=== PATIENT | female | born 1985 | race Caucasian/White ===

== ENCOUNTER 2018-12-10 20:31 | Emergency (ER) | payer OTHER, SELFPAY ==
--- NOTE | 2018-12-10 20:43 | ED.BACK ---
HPI - Back Pain/Injury <HEENA Danielle - Last Filed: 12/10/18 21:29> General Chief Complaint: Back Pain/Injury Stated Complaint: says she threw out her back Time Seen by Provider: 12/10/18 20:43 Source: patient and family (spouse) Mode of arrival: ambulatory Limitations: no limitations History of Present Illness HPI Narrative: pt says she was bending over to pickle sorter kids toys and threw her back out, instant pain, happened yesterday, went to walk in clinic, given shot of Toradol there, no rx and can't take the pain anymore, pain is worse with movement and touch, and nothing makes it better Complaint: back pain and back injury Onset (ago): day(s) Duration: constant Similar Symptoms Previously: No Location: lumbar spine Severity: severe Quality: sharp Radiation: none Relieving factors: none Exacerbating factors: movement, sitting upright and walking Context: while lifting and bending Associated symptoms: denies other symptoms Treatments prior to arrival: acetaminophen and other (patch) Related Data Home Medications Medication Instructions Recorded Confirmed pantoprazole [Protonix] 40 mg PO QDAY #0 06/07/16 12/09/18 Previous Rx's Medication Instructions Recorded cyclobenzaprine 10 mg PO Q8H PRN #20 tab 12/10/18 tramadol [Ultram] 50 mg PO Q6H PRN #20 tab 12/10/18 Allergies Allergy/AdvReac Type Severity Reaction Status Date / Time No Known Drug Allergies Allergy Verified 12/10/18 20:45 Review of Systems <HEENA Danielle - Last Filed: 12/10/18 21:29> Review of Systems ROS Unobtainable: All systems reviewed & are unremarkable except as noted in HPI and below Constitutional Reports as per HPI, Reports system reviewed and no additional complaints, except as docu and Denies weakness ENT Ears, Nose, Mouth, and Throat: Denies neck pain Cardiovascular Denies chest pain, Denies leg edema and Denies dyspnea Respiratory Denies dyspnea Gastrointestinal Gastrointestinal: Denies abdominal pain, Denies diarrhea and Denies vomiting Genitourinary Denies hematuria, Denies urinary frequency, Denies difficulty voiding, Denies dysuria, Denies flank pain, Denies urinary incontinence, Denies urinary hesitancy and Denies urinary urgency Musculoskeletal Reports as per HPI, Reports abnormal gait, Reports back pain, Denies deformity, Reports limited range of motion, Denies muscle weakness, Denies neck pain, Denies numbness and Denies tingling Integumentary/Breasts Reports as per HPI, Reports unusual bruising (says today noticed small bruise near area of back pain and has no idea wher) and Denies wounds Comments: where bruise came from Neurologic Reports abnormal gait, Denies numbness, Denies sensory deficit, Denies tingling, Denies paresthesias and Denies weakness PFSH <HEENA Danielle - Last Filed: 12/10/18 21:29> Social History Smoking Status: Current every day smoker Social History Smoking Status: Current every day smoker Exam <HEENA Danielle - Last Filed: 12/10/18 21:29> Initial Vital Signs Initial Vital Signs: Vital Signs Temperature 97.8 F 12/10/18 20:45 Pulse Rate 114 H 12/10/18 20:45 Respiratory Rate 18 12/10/18 20:45 Blood Pressure 144/90 H 12/10/18 20:45 Pulse Oximetry 100 12/10/18 20:45 Const General: cooperative, healthy appearing, comfortable, well developed and well groomed Nutritional Appearance: average body habitus Orientation: alert, awake and oriented x3 HENMT Head: normal to inspection and normocephalic Ears: hearing grossly normal bilaterally, external ears normal, TM's normal bilaterally and mastoids normal Nose: external nose normal and nares normal Face and sinus: normal facial exam, sinuses nontender and face symmetric Mouth: oral mucosae normal, lip normal, tongue normal, oropharynx normal and moist mucous membranes Teeth and gingiva: dentition normal and gingiva normal Throat: posterior oropharynx normal, tonsils normal and uvula midline Eyes General: appearance normal, both eyes and all related structures Visual Patricio: normal visual patricio by confrontation Eyelids: eyelids normal Conjunctivae: conjunctivae normal Sclera: sclerae normal Pupils: PERRL EOM: EOM intact bilaterally Neck Neck: normal visual inspection, full ROM, no meningeal signs, trachea midline, supple and No lymphadenopathy Chest Chest: normal inspection of the chest Resp Effort & Inspection: normal respiratory effort and able to speak in complete sentences Auscultation: clear to auscultation bilaterally Cardio Rate: regular rate Rhythm: regular rhythm Heart Sounds: S1 normal and S2 normal Back/Spine/Pelvis Back: No normal to inspection, back tenderness and No CVA tenderness Cervical Spine: cervical ROM normal Thoracic/Lumbar Spine: No thoraco-lumbar ROM normal and pain with thoraco-lumbar ROM Other: pt laying in semi position on her L side and says any movement causes back pain, upper lumbar vertebra tenderness with some paraspinal tenderness, 1cm size contusion seen, decreased rom secondary to pain Skin General: no rashes or lesions noted, elasticity normal, turgor normal and dry skin Neuro General: alert, awake, oriented x3 and meningeal signs present Cognition: normal cognition Speech: speech normal Gait: normal gait Motor: muscle tone normal throughout Sensory Exam: no sensory deficits noted Extrem General: normal to inspection and full ROM Right upper extremity: normal to inspection and full ROM Left upper extremity: normal to inspection and full ROM Right lower extremity: normal to inspection and full ROM Left lower extremity: normal to inspection and full ROM Other: movement of legs causing increased back pain Psych Appearance: grossly normal and well kempt Mental Status: mental status grossly normal Speech and Movement: speech and movement normal Mood: congruent mood Affect: normal affect Attitude: cooperative Thought Process: normal Thought Content: normal Judgment: judgment good <Jeremy Paiz DO - Last Filed: 12/10/18 22:01> Initial Vital Signs Initial Vital Signs: Vital Signs Temperature 97.8 F 12/10/18 20:45 Pulse Rate 114 H 12/10/18 20:45 Respiratory Rate 18 12/10/18 20:45 Blood Pressure 144/90 H 12/10/18 20:45 Pulse Oximetry 100 12/10/18 20:45 Course <HEENA Danielle - Last Filed: 12/10/18 21:29> Course Narrative: chart from walk in clinic visit yesterday reviewed, neg test, toradol 30mg given, no rx 2119 results and dc plan discussed, toradol not helping yet, agreed to do rx to help with pain and f/u with pcp Orders Ordered: ED Orders 12/10/18 20:50 XR lumbar spine 2-3V Stat Discontinued Medications Hydrocodone Bitart/Acetaminophen (Vicodin Prepack) 1 bottle MISC SEEINSTR ONE Stop: 12/10/18 21:29 Last Admin: 12/10/18 21:32 Dose: 1 bottle Ketorolac Tromethamine (Toradol) 60 mg IM NOW ONE Stop: 12/10/18 20:51 Last Admin: 12/10/18 20:54 Dose: 60 mg Vital Signs - 8 hr 12/10/18 20:45 12/10/18 21:37 Temperature 97.8 F Pulse Rate 114 H 95 H Respiratory Rate 18 16 Blood Pressure 144/90 H 136/93 H Pulse Oximetry 100 100 <Jeremy Paiz DO - Last Filed: 12/10/18 22:01> Orders Ordered: ED Orders 12/10/18 20:50 XR lumbar spine 2-3V Stat Discontinued Medications Hydrocodone Bitart/Acetaminophen (Vicodin Prepack) 1 bottle MISC SEEINSTR ONE Stop: 12/10/18 21:29 Last Admin: 12/10/18 21:32 Dose: 1 bottle Ketorolac Tromethamine (Toradol) 60 mg IM NOW ONE Stop: 12/10/18 20:51 Last Admin: 12/10/18 20:54 Dose: 60 mg Vital Signs - 8 hr 12/10/18 20:45 12/10/18 21:37 Temperature 97.8 F Pulse Rate 114 H 95 H Respiratory Rate 18 16 Blood Pressure 144/90 H 136/93 H Pulse Oximetry 100 100 MDM - Back Pain/Injury <HEENA Danielle - Last Filed: 12/10/18 21:29> Differential Diagnosis Differential diagnosis: Likely lumbar radiculopathy, sciatica, strain of lumbar region and discitis Imaging Data xr LS spine: Radiologist's impression: PROCEDURE: XR LUMBAR SPINE 2-3V INDICATIONS: pain TECHNIQUE: 3 views of the lumbar spine were acquired. COMPARISON: None. FINDINGS: Bones: 5 [id number] vertebrae are present. There is normal bony alignment. No vertebral body compression fractures. No suspicious bony lesions. Soft tissues: Overlying bowel gas pattern is normal. No suspicious soft tissue calcifications. IMPRESSION: No acute fracture. No osseous lesion. If clinical suspicion and/or symptoms persist, further assessment with repeat plainfilms, or advanced imaging (e.g., CT, MRI, or bone scan) may be helpful for further assessment. Dictated by: Nayely Martin M.D. on 12/10/2018 at 21:04 Approved by: Nayely Martin M.D. on 12/10/2018 at 21:04 Discharge Plan Departure Patient Disposition: Home Clinical Impression: Lumbar strain Qualifiers: Encounter type: initial encounter Qualified Code(s): S39.012A - Strain of muscle, fascia and tendon of lower back, initial encounter Low back pain Qualifiers: Chronicity: acute Back pain laterality: unspecified Sciatica presence: without sciatica Qualified Code(s): M54.5 - Low back pain Discharge Date/Time: 12/10/18 21:38 Interventions: ED Discharge Assessment Last Done: 12/10/18 21:37 Instructions: DI for Low Back Pain, DI for Back Strain or Sprain Prescriptions: New cyclobenzaprine 10 mg tablet 10 mg PO Q8H PRN (Reason: muscle spasm) Qty: 20 RF: 0 tramadol [Ultram] 50 mg tablet 50 mg PO Q6H PRN (Reason: pain) Qty: 20 RF: 0 No Action pantoprazole [Protonix] 40 MG tablet,delayed release (DR/EC) 40 mg PO QDAY Qty: 0 RF: 0 Referrals: Vivian Nelson MD [Primary Care Provider] - (follow up in 5 days as needed for continued pain/issues) <Jeremy Paiz DO - Last Filed: 12/10/18 22:01> [facility] ED Attending Monika Attestation: I was available for consultation during this patient's emergency department encounter
[2018-12-10 20:45] VITALS: BP 144/90; PULSE 114; RESP 18; TEMP 36.6; O2SAT 100; BMI 32.5
--- NOTE | 2018-12-10 20:50 | DI.RAD.S_ITS ---
PROCEDURE: XR LUMBAR SPINE 2-3V INDICATIONS: pain TECHNIQUE: 3 views of the lumbar spine were acquired. COMPARISON: None. FINDINGS: Bones: 5 [id number] vertebrae are present. There is normal bony alignment. No vertebral body compression fractures. No suspicious bony lesions. Soft tissues: Overlying bowel gas pattern is normal. No suspicious soft tissue calcifications. IMPRESSION: No acute fracture. No osseous lesion. If clinical suspicion and/or symptoms persist, further assessment with repeat plainfilms, or advanced imaging (e.g., CT, MRI, or bone scan) may be helpful for further assessment. Dictated by: Nayely Martin M.D. on 12/10/2018 at 21:04 Approved by: Nayely Martin M.D. on 12/10/2018 at 21:04
[2018-12-10] MEDS: KETOROLAC 60 MG/2 ML VIAL IM (20:54)
[2018-12-10] MEDS: HYDROCODONE/ACET 5/325 PREPACK 1 BOTTLE MISC (21:32)
[2018-12-10 21:37] VITALS: BP 136/93; PULSE 95; RESP 16; O2SAT 100
== END 2018-12-10 21:38 | disposition home or self-care (01) ==
PROVIDERS: Emergency Provider Nurse Practitioner; PCP Family Medicine
DX: S39.012A Strain of muscle, fascia and tendon of lower back, initial encounter (principal)
CPT/HCPCS: 72100; 99282; 99283; J1885

== ENCOUNTER → 2019-12-29 11:56 | Outpatient (CLI) | payer OTHER, SELFPAY ==
[2019-12-29 13:42] LABS: Progesterone, Total 8.13 ng/mL
== END ==
PROVIDERS: PCP Family Medicine; Referring Provider Obstetrics & Gynecology; Visit Provider Obstetrics & Gynecology
DX: E28.2 Polycystic ovarian syndrome (principal); N97.0 Female infertility associated with anovulation
CPT/HCPCS: 36415; 84144

== ENCOUNTER → 2020-05-12 11:23 | Outpatient (CLI) | payer OTHER, SELFPAY ==
[2020-05-12 13:03] LABS: Final Volume 0.5 mL; Initial Volume 8.5 mL; Semen 30 min. Liquification? Yes
== END ==
PROVIDERS: PCP Family Medicine; Referring Provider Obstetrics & Gynecology; Visit Provider Obstetrics & Gynecology
DX: N97.0 Female infertility associated with anovulation (principal)
CPT/HCPCS: 58323

== ENCOUNTER → 2020-12-07 11:34 | Outpatient (CLI) | payer OTHER, SELFPAY ==
[2020-12-07 12:08] LABS: Final Volume 0.5 mL; Semen 30 min. Liquification? Yes
== END ==
PROVIDERS: PCP Family Medicine; Referring Provider Obstetrics & Gynecology; Visit Provider Obstetrics & Gynecology
DX: N97.9 Female infertility, unspecified (principal); E28.2 Polycystic ovarian syndrome
CPT/HCPCS: 58323

== ENCOUNTER 2021-02-01 12:12 | Emergency (ER) | payer OTHER, SELFPAY ==
[2021-02-01 12:30] VITALS: BP 149/99; PULSE 112; RESP 16; TEMP 37.1; O2SAT 100; BMI 34.3
--- NOTE | 2021-02-01 12:45 | ED.BACK ---
HPI - Back Pain/Injury General Chief Complaint: Back Pain/Injury Stated Complaint: Back went out Time Seen by Provider: 02/01/21 15:43 Source: patient Mode of arrival: Ambulatory Limitations: no limitations History of Present Illness HPI Narrative: This is a 35-year-old female comes emergency department complaint of back pain. Patient states she has had back issues in the past with a slipped disc felt 13 years ago and then the last couple years some minor symptoms but has been well since then. About a week ago she was bending over putting on some lotion when she felt her back relax and then sitting up became quite uncomfortable. She has had kind of slowly increasing discomfort over the past week she saw the chiropractor twice on and Tuesday and after her 2nd visit her pain increased significantly. Patient has had some radiation down her right leg which is new. Patient denies any numbness but has had some tingling. She denies any saddle anesthesia or numbness or tingling in her groin. No bowel or bladder difficulties, no incontinence. Patient has any fevers or chills. No chest pain shortness of breath, no nausea or vomiting other GI or urinary symptoms. She denies any weakness in her lower extremities but does have increased pain particularly with movement of the right leg. Patient's take Tylenol and ibuprofen at home with minimal improvement. She has no known drug allergies. She has not had any prior back surgeries. She did drive herself today but states she can easily find a ride. Related Data Home Medications Medication Instructions Recorded Confirmed pantoprazole [Protonix] 40 mg PO QDAY #0 06/07/16 01/05/21 Previous Rx's Medication Instructions Recorded letrozole 2.5 mg tablet 2.5 mg PO .COMPLEX #5 tab 12/23/20 diazepam [Valium] 10 mg PO TID PRN #14 tab 02/01/21 meloxicam 7.5 mg PO BID PRN #20 tab 02/01/21 Allergies Allergy/AdvReac Type Severity Reaction Status Date / Time No Known Drug Allergies Allergy Verified 01/05/21 13:15 Review of Systems Review of Systems ROS Unobtainable: All systems reviewed & are unremarkable except as noted in HPI and below Patient History Medical History Infertility Social History Smoking Status: Current every day smoker Smoking Status: Current every day smoker alcohol intake frequency: a few times a week Substance Use Type: does not use Exam Narrative Exam Narrative: GENERAL: Alert and oriented x three, female BMI of 34 in moderate distress. Patient appears uncomfortable sitting up straight backed on the edge of the emergency room [facility]. HEENT: Head normocephalic, atraumatic, EOMI, pupils reactive, face symmetric, moist mucous membranes NECK: Supple, full range of motion CARDIOVASCULAR: Regular rate and rhythm without murmurs, rubs or gallops. RESPIRATORY: Breath sounds equal bilaterally, no wheezes rales or rhonchi. ABDOMEN: Soft, nontender. Normoactive bowel sounds all 4 quadrants. No guarding or rebound, rigidity, no mass : No CVA tenderness BACK: No cervical, thoracic or vertebral point tenderness, patient does have some tenderness of her L3-L4 region with some moderate tenderness in the lower lumbar paraspinal and lateral region. There is no warmth erythema or skin changes noted. Patient has decreased range of motion. Patient's gait is [antalgic/normal]. Rectal exam is deferred. Muscle strength is 5/5 in lower extremities. Dorsalis pedis and tibialis pulses are 2+ and lower extremities. Sensation is intact in the lower extremities. EXTREMITIES: Normal range of motion, no clubbing or edema. Neurovascularly intact NEUROLOGICAL: Cranial nerves II through XII grossly intact. Moving all extremities SKIN: Warm, dry, no petechiae, no rashes or lesions. Initial Vital Signs Initial Vital Signs: Vital Signs Temperature 98.7 F 02/01/21 12:30 Pulse Rate 112 H 02/01/21 12:30 Respiratory Rate 16 02/01/21 12:30 Blood Pressure 149/99 H 02/01/21 12:30 Pulse Oximetry 100 02/01/21 12:30 Course Orders Ordered: Discontinued Medications Diazepam (Diazepam 5 Mg Tablet) 10 mg PO NOW ONE Stop: 02/01/21 15:52 Last Admin: 02/01/21 16:02 Dose: 10 mg Documented by: [email or web address] Ketorolac Tromethamine (Ketorolac 30 Mg/Ml Vial) 30 mg IM NOW ONE Stop: 02/01/21 15:52 Last Admin: 02/01/21 16:02 Dose: 30 mg Documented by: [email or web address] Reevaluation(s) Reevaluation #1: Patient is feeling much better at this time, she would like to return home. Lab was drying a culture on the patient. This had accidentally been ordered several hours before but then had been canceled but apparently lab had not been updated of the cancellation. Time: 17:33 Vital Signs Vital signs: Vital Signs - 8 hr 02/01/21 12:30 02/01/21 14:48 Temperature 98.7 F Pulse Rate 112 H 107 H Respiratory Rate 16 Blood Pressure 149/99 H 127/85 Pulse Oximetry 100 98 MDM - Back Pain/Injury Imaging Data L-spine x-ray: Radiologist's Impression: [address] [id number] ReportSigned Patient: Enrike Mosquera AMR#: [id number]: 1985Acct:[id number]/Sex: 35 / FDate of Service: 02/01/21Loc: EDAccession Number: [id number] Procedure: XR lumbar spine 2-3V Ordering Provider: Chinyere Leonard D.O. PROCEDURE: XR LUMBAR SPINE 2-3V INDICATIONS: acute on chronic back pain, was at chiropractor recently TECHNIQUE: 3 views of the lumbar spine were acquired. COMPARISON: [facility] , XR LUMBAR SPINE 2-3V, 12/10/2018, 20:59. FINDINGS: Bones: 5 [id number] vertebrae are present. There is normal bony alignment. No vertebral body compression fractures. No suspicious bony lesions. Soft tissues: Overlying bowel gas pattern is normal. No suspicious soft tissue calcifications. IMPRESSION: No evidence acute bony abnormality of the lumbar spine. If clinical suspicion and/or symptoms persist, further assessment with repeat plain films, or advanced imaging (e.g., CT, MRI, or bone scan) may be helpful for further assessment. Dictated by: Geremias Flaherty M.D. on 02/01/2021 at 15:44 Approved by: Geremias Flaherty M.D. on 02/01/2021 at 15:45 [facility] Narrative Medical decision making narrative: This is a 35-year-old female who comes emergency department with complaint of acute on chronic low back pain. Patient does not have any red flag symptoms today other than she did have recent chiropractor treatment 2 days in a row and had increasing pain at that time. Her lumbar x-ray does not show any acute fracture or other obvious bony abnormality. She is feeling much better after medications and feels comfortable return home. Prescription was sent to [facility] in [place]. Return precautions were discussed. Discharge Plan Departure Patient Disposition: Home Clinical Impression: Low back pain Instructions: DI for Back Pain With Sciatica Activity Restrictions/Additional Instructions: Follow up with your physician in the next week if you are not having improvement of your symptoms. You may take meloxicam 1 tablet every 12 hours as needed for pain. You may take Tylenol up to a 1000 mg with this medication. Take Valium 1 tablet every 8 hours as needed for muscle spasm. This medication can make you sleepy do not drive, perform hazardous activities or make any major decisions while taking it. Moist or warm heat, hot showers or hot packs to the affected area may be helpful. Prescription to [facility] in [place] Please return for fevers, loss of bowel or bladder control, rapidly worsening symptoms, loss of sensation, new numbness or inability to use your extremities, new weakness or other new or concerning symptoms. Prescriptions: New meloxicam 7.5 mg tablet 7.5 mg PO BID PRN (Reason: pain) Qty: 20 RF: 0 diazepam [Valium] 10 mg tablet 10 mg PO TID PRN (Reason: muscle spasm) Qty: 14 RF: 0 No Action pantoprazole [Protonix] 40 MG tablet,delayed release (DR/EC) 40 mg PO QDAY Qty: 0 RF: 0 letrozole 2.5 mg tablet 2.5 mg PO .COMPLEX Qty: 5 RF: 0 Referrals: Ryanne Thomas DO [Primary Care Provider] -
[2021-02-01 14:48] VITALS: BP 127/85; PULSE 107; O2SAT 98
--- NOTE | 2021-02-01 15:51 | DI.RAD.S_ITS ---
PROCEDURE: XR LUMBAR SPINE 2-3V INDICATIONS: acute on chronic back pain, was at chiropractor recently TECHNIQUE: 3 views of the lumbar spine were acquired. COMPARISON: [facility], , XR LUMBAR SPINE 2-3V, 12/10/2018, 20:59. FINDINGS: Bones: 5 [id number] vertebrae are present. There is normal bony alignment. No vertebral body compression fractures. No suspicious bony lesions. Soft tissues: Overlying bowel gas pattern is normal. No suspicious soft tissue calcifications. IMPRESSION: No evidence acute bony abnormality of the lumbar spine. If clinical suspicion and/or symptoms persist, further assessment with repeat plain films, or advanced imaging (e.g., CT, MRI, or bone scan) may be helpful for further assessment. Dictated by: Geremias Flaherty M.D. on 02/01/2021 at 15:44 Approved by: Geremias Flaherty M.D. on 02/01/2021 at 15:45
[2021-02-01] MEDS: diazePAM 5 MG TABLET 10 MG PO (16:02)
[2021-02-01] MEDS: KETOROLAC 30 MG/ML VIAL IM (16:02)
[2021-02-01 17:57] VITALS: PULSE 105; O2SAT 98
[2021-02-01 17:58] VITALS: BP 125/79; PULSE 104; O2SAT 99
== END 2021-02-01 18:01 | disposition home or self-care (01) ==
PROVIDERS: Emergency Provider Emergency Medicine; PCP Family Medicine
DX: M54.5 Low back pain (principal)
CPT/HCPCS: 72100; 96372; 99283; J1885